=== PATIENT | male | born 1965 | race Caucasian/White ===

== ENCOUNTER 2017-06-14 07:47 | Day surgery (SDC) | payer BC, OTHER ==
[~2017-06-14] VITALS: Ht 170.2 cm; Wt 73.6 kg
[~2017-06-14 07:47] MED LIST: SODIUM CHLORIDE 0.9% 1000ML 1,000 ML IV ONE
[2017-06-14 08:28] VITALS: BP 93/59
[2017-06-14] MEDS ORDERED: PROPOFOL 10 MG/ML 20ML VIAL IV ONE (10:02)
[2017-06-14] MEDS ORDERED: FENTANYL CITRATE PF 50 MCG/1 ML 2ML VIAL ONE (10:02)
[2017-06-14] MEDS ORDERED: LIDOCAINE HCL 2% 20ML ONE (10:02)
[2017-06-14] MEDS ORDERED: GLYCOPYRROLATE 0.2 MG/ML 5 ML VIAL ONE (10:02)
[2017-06-14 10:19] VITALS: BP 110/62
== END 2017-06-14 10:50 ==
LOC: DAH 07:47
PROVIDERS: ATTEND Internal Medicine Gastroenterology
DX: Z12.11 Encounter for screening for malignant neoplasm of colon (principal)
CPT/HCPCS: 45378; A4606; J2704; J3010; J3490 ×2; J7030